=== PATIENT | male | born 1990 | race Two or more races ===

== ENCOUNTER 2016-12-27 17:23 | Emergency (ER) | payer OTHER ==
[~2016-12-27] VITALS: Ht 172.7 cm; Wt 105.2 kg
[2016-12-27 17:26] VITALS: BP 129/98
== END 2016-12-27 20:31 | disposition home or self-care (01) ==
LOC: ER 17:26
DX: S61.211A Laceration without foreign body of left index finger without damage to nail, initial encounter (principal); W26.0XXA Contact with knife, initial encounter; Y93.G9 Activity, other involving cooking and grilling; Y99.8 Other external cause status; Y92.89 Other specified places as the place of occurrence of the external cause
CPT/HCPCS: 12002; 29130